=== PATIENT | female | born 1955 | race Caucasian/White ===

== ENCOUNTER 2017-01-22 11:15 | Inpatient (IN) | payer OTHER ==
[~2017-01-22] VITALS: Ht 162.6 cm; Wt 66.6 kg
[2017-01-22 12:36] LABS: HEMATOCRIT 47.1 % (36.0-46.0); MCH 34.1 PG (29.0-34.0); MCHC 33.3 G/DL (30.0-36.0); MCV 102.2 FL (83-99); MEAN PLAT.VOLUME 10.7 uM^3 (9.5-12.4); PLATELET COUNT 217 K/uL (156-360); RBC DIS.WIDTH-CV 12.5 % (11.8-14.6); RBC DIS.WIDTH-SD 46.9 % (39-53); RED BLOOD COUNT 4.61 M/uL (3.80-5.20); WHITE BLOOD COUNT 15.6 K/uL (4.1-10.2)
[2017-01-22 12:50] LABS: CHLORIDE 104 mEq/L (99-109); POTASSIUM 4.3 mEq/L (3.7-5.4); SODIUM 139 mEq/L (136-147)
[2017-01-22 12:51] LABS: GLUCOSE 111 mg/dL (70-99)
[2017-01-22 12:53] LABS: ANION GAP 11 MEQ/L (2-14)
[2017-01-22 12:55] LABS: GFR ESTIMATE (CALCULATED) > 59 mL/min/
[2017-01-22 12:56] LABS: UREA NITROGEN (BUN) 13 mg/dL (9-23)
[2017-01-22] MEDS ORDERED: SERTRALINE HCL100 MG PO (15:16)
[2017-01-22] MEDS ORDERED: BENICAR40 MG PO (15:16)
[2017-01-22] MEDS ORDERED: AZELASTINE137 MCG/0. BOTH NARES (15:16)
[2017-01-22] MEDS ORDERED: PROTONIX40 MG PO (15:17)
[2017-01-22] MEDS ORDERED: EVOXAC30 MG PO (15:17)
[2017-01-22] MEDS ORDERED: PRAVASTATIN SOD40 MG PO (15:18)
[2017-01-22] MEDS ORDERED: EPIPEN ADU0.3 MG/0.3 IM (15:18)
[2017-01-22 17:45] VITALS: BP 136/86
[2017-01-22 19:15] LABS: METH RESISTANT S AUREUS PCR NEGATIVE (NEGATIVE)
[2017-01-22 19:17] LABS: PROBE CHECK PASS; SPECIMEN PROCESSING CONTROL PASS
[2017-01-22 20:00] VITALS: BP 140/66
[2017-01-22 22:00] VITALS: BP 130/65
[2017-01-23] VITALS (10 sets, daily range): BP systolic 119–158; BP diastolic 64–88
[2017-01-23 06:13] LABS: ALKALINE PHOSPHATASE 66 IU/L (3-129); ANION GAP 9 MEQ/L (2-14); CHLORIDE 104 MEQ/L (99-109); GFR ESTIMATE (CALCULATED) > 59 mL/min/; GLUCOSE 124 mg/dL (70-99); POTASSIUM 4.3 MEQ/L (3.7-5.4); SAMPLE HEMOLYSIS CHECK 0; SAMPLE ICTERIC CHECK 0; SAMPLE LIPEMIA CHECK 0; SODIUM 138 MEQ/L (136-147); TOTAL BILIRUBIN 0.5 MG/DL (0.0-1.0); UREA NITROGEN (BUN) 14 mg/dL (9-23)
[2017-01-23 06:18] LABS: HEMATOCRIT 40.8 % (36.0-46.0); MCH 34.3 PG (29.0-34.0); MCHC 33.6 G/DL (30.0-36.0); MEAN PLAT.VOLUME 10.6 uM^3 (9.5-12.4); PLATELET COUNT 192 K/uL (156-360); RBC DIS.WIDTH-SD 45.2 % (39-53); WHITE BLOOD COUNT 12.9 K/uL (4.1-10.2)
[2017-01-24] VITALS: BP 153/73
[2017-01-24 04:00] VITALS: BP 158/74
[2017-01-24 05:43] LABS: EOSINOPHIL (%) 0 % (0-5); HEMATOCRIT 40.5 % (36.0-46.0); IMMATURE GRANULOCYTE (%) 0.8 % (0.0-0.7); IMMATURE GRANULOCYTE COUNT 0.1 K/uL; INSTRUMENT ABS NEUTROPHIL CT 7.7 K/uL; LYMPHOCYTE COUNT 0.9 K/uL (1.0-2.8); MCH 33.4 PG (29.0-34.0); MCHC 33.1 G/DL (30.0-36.0); MEAN PLAT.VOLUME 10.7 uM^3 (9.5-12.4); MONOCYTE (%) 4.4 % (3-12); MONOCYTE COUNT 0.4 K/uL (0-0.8); NEUTROPHIL (%) 84.7 % (45-76); NEUTROPHIL COUNT 7.7 K/uL (1.8-6.4); PLATELET COUNT 202 K/uL (156-360); RBC DIS.WIDTH-CV 11.8 % (11.8-14.6); RBC DIS.WIDTH-SD 43.8 % (39-53); RED BLOOD COUNT 4.01 M/uL (3.80-5.20); WHITE BLOOD COUNT 9.1 K/uL (4.1-10.2)
[2017-01-24 06:04] LABS: ANION GAP 8 MEQ/L (2-14); CHLORIDE 107 MEQ/L (99-109); GFR ESTIMATE (CALCULATED) > 59 mL/min/; GLUCOSE 127 mg/dL (70-99); MAGNESIUM 1.9 mg/dl (1.3-2.7); POTASSIUM 4.4 MEQ/L (3.7-5.4); SAMPLE HEMOLYSIS CHECK 0; SAMPLE ICTERIC CHECK 0; SAMPLE LIPEMIA CHECK 0; SODIUM 139 MEQ/L (136-147); UREA NITROGEN (BUN) 18 mg/dL (9-23)
[2017-01-24 08:00] VITALS: BP 147/73
[2017-01-24 12:00] VITALS: BP 154/82
[2017-01-24 14:00] VITALS: BP 155/83
== END 2017-01-24 14:50 | disposition short-term general hospital (02) | DRG 189 ==
LOC: EME 11:15 → EDOF 16:03 → 4WEST 16:03
PROVIDERS: Hospitalist; Internal Medicine; Physician Assistant
DX: J96.90 Respiratory failure, unspecified, unspecified whether with hypoxia or hypercapnia (principal); T79.7XXA Traumatic subcutaneous emphysema, initial encounter; F32.89 Other specified depressive episodes; J90 Pleural effusion, not elsewhere classified; R07.0 Pain in throat; E78.5 Hyperlipidemia, unspecified; I10 Essential (primary) hypertension; J98.11 Atelectasis; R13.10 Dysphagia, unspecified; I26.99 Other pulmonary embolism without acute cor pulmonale; Z87.442 Personal history of urinary calculi; F17.210 Nicotine dependence, cigarettes, uncomplicated; R60.9 Edema, unspecified; D72.829 Elevated white blood cell count, unspecified; H92.09 Otalgia, unspecified ear
CPT/HCPCS: 70491; 71010; 71020; 74230; 80048; 80053; 83605; 83735; 83880; 85025; 85027; 87040; 87641; 92611 GN; 94640; 94799; 99281; 99285; C9113; J1100; J2405; J2543; J3010; J7030; J7050